=== PATIENT | male | born 1975 | race Caucasian/White ===

== ENCOUNTER 2017-07-03 20:03 | Emergency (ER) | payer MEDICAID, SELFPAY ==
[~2017-07-03] VITALS: Ht 190.5 cm; Wt 102.8 kg
[2017-07-03] MEDS ORDERED: KETOROLAC 30 MG/1 ML ONE (21:54)
[2017-07-03] MEDS ORDERED: METHOCARBAMOL 750 MG TABLET ONE (21:54)
[2017-07-03] MEDS ORDERED: KETOROLAC 30 MG/1 ML IM ONE (22:00)
[2017-07-03] MEDS ORDERED: METHOCARBAMOL 750 MG TABLET PO ONE (22:00)
[2017-07-03 22:38] VITALS: BP 152/105
[2017-07-03] MEDS ORDERED: LISI-424 PO (22:41)
== END 2017-07-03 22:47 | disposition home or self-care (01) ==
LOC: ED 22:42
DX: M54.42 Lumbago with sciatica, left side (principal); I10 Essential (primary) hypertension; M94.0 Chondrocostal junction syndrome [Tietze]; R07.89 Other chest pain
CPT/HCPCS: 71046; 93005; 96372; 99284; J1885

== ENCOUNTER 2017-07-31 18:58 | Emergency (ER) | payer MEDICAID ==
[~2017-07-31] VITALS: Ht 190.5 cm; Wt 104.2 kg
[~2017-07-31 18:58] MED LIST: LISI-424 PO
[2017-07-31] MEDS ORDERED: PROCHLORPERAZINE 5 MG/ML, 2ML ONE (19:23)
[2017-07-31] MEDS ORDERED: DIPHENHYDRAMINE 50 MG/ML, 1ML ONE (19:23)
[2017-07-31] MEDS ORDERED: KETOROLAC 30 MG/1 ML ONE (19:23)
[2017-07-31] MEDS ORDERED: KETOROLAC 30 MG/1 ML IVPush ONE (19:30)
[2017-07-31] MEDS ORDERED: SODIUM CHLORIDE 0.9% 1,000ML IVBOLUS ONE (19:30)
[2017-07-31] MEDS ORDERED: DIPHENHYDRAMINE 50 MG/ML, 1ML IVPush ONE (19:30)
[2017-07-31] MEDS ORDERED: SODIUM CHLORIDE FLUSH 10ML SYR IVF ONE (19:30)
[2017-07-31] MEDS ORDERED: PROCHLORPERAZINE 5 MG/ML, 2ML IVPush ONE (19:30)
[2017-07-31 20:33] VITALS: BP 175/96
== END 2017-07-31 21:15 | disposition home or self-care (01) ==
LOC: ED 20:58
DX: G43.909 Migraine, unspecified, not intractable, without status migrainosus (principal); I10 Essential (primary) hypertension
CPT/HCPCS: 70450; 96374; 96375; 99284; J0780; J1200; J1885; J7030

== ENCOUNTER 2017-12-28 19:58 | Emergency (ER) | payer MEDICAID ==
[~2017-12-28] VITALS: Ht 190.5 cm; Wt 101.2 kg
[2017-12-28 19:59] VITALS: BP 144/96
[2017-12-28] MEDS ORDERED: KETOROLAC 30 MG/1 ML IM ONE (20:30)
[2017-12-28] MEDS ORDERED: CYCLOBENZAPRINE 10 MG TABLET PO ONE (20:30)
[2017-12-28] MEDS ORDERED: CYCLOBENZAPRINE 10 MG TABLET ONE (20:38)
[2017-12-28] MEDS ORDERED: KETOROLAC 30 MG/1 ML ONE (20:38)
== END 2017-12-28 21:04 | disposition home or self-care (01) ==
LOC: ED 20:49
DX: M62.838 Other muscle spasm (principal); I10 Essential (primary) hypertension
CPT/HCPCS: 96372; 99283; J1885

== ENCOUNTER 2018-11-08 03:12 | Emergency (ER) | payer MEDICAID ==
[~2018-11-08] VITALS: Ht 190.5 cm; Wt 115.0 kg
--- NOTE | 2018-11-08 03:30 | NUR ---
GERARDO REMSA AFTER PT TOLD TO CALL FOR HELP. PT HAS BEEN FEELING DEPRESSED FOR PAST 3 MONTHS. STARTED HAVING AUDITORY AND VISUAL HALLUCINATIONS FOR THE PAST 2 WEEKS. DENIES EVERY BEING DIAGNOSED WITH DEPRESSION OR SCHIZOPHRENIA. PT ADMITS TO DRINKING AND USING EITHER COCAINE OR METH TONIGHT. ALSO SAYS HE HAS NOT SLEPT IN 4 DAYS.
[2018-11-08 03:52] LABS: BASOPHILS # (AUTO) 0.16 x10^3/uL (0-0.1); BASOPHILS % (AUTO) 2 % (0-1); EOSINOPHILS # (AUTO) 0.17 x10^3/uL (0-0.4); EOSINOPHILS % (AUTO) 2 % (1-7); LYMPHOCYTES # (AUTO) 3.18 x10^3/uL (1-3.4); LYMPHOCYTES % (AUTO) 39 % (22-44); MD NO; MEAN CORPUSCULAR HEMOGLOBIN 30.2 pg (27.5-34.5); MEAN CORPUSCULAR HGB CONC 33.5 g/dL (33.2-36.2); MEAN CORPUSCULAR VOLUME 90.2 fL (81-97); MEAN PLATELET VOLUME 7.9 fL (7.4-10.4); MONOCYTES # (AUTO) 0.64 x10^3/uL (0.2-0.8); MONOCYTES % (AUTO) 8 % (2-9); NEUTROPHILS # (AUTO) 4.01 x10^3/uL (1.8-6.8); NEUTROPHILS % (AUTO) 49 % (42-75); PLATELET COUNT 283 x10^3/uL (130-400); RED BLOOD COUNT 4.52 x10^6/uL (4.38-5.82)
--- NOTE | 2018-11-08 04:00 | NUR ---
PT RESTING ON IMELDA. VSS. UPDATED ON POC.
[2018-11-08 04:05] LABS: ALANINE AMINOTRANSFERASE 42 U/L (12-78); ALBUMIN 4.4 g/dL (3.4-5.0); ANION GAP 11 mmol/L (5-15); CALCIUM 8.7 mg/dL (8.5-10.1); CHLORIDE 106 mmol/L (98-107); CREATININE 1.22 mg/dL (0.7-1.3)
[2018-11-08 04:07] LABS: ALKALINE PHOSPHATASE 17 U/L (45-117); BILIRUBIN,TOTAL 0.6 mg/dL (0.2-1.0); TOTAL PROTEIN 7.5 g/dL (6.4-8.2)
[2018-11-08 04:08] LABS: ACETAMINOPHEN < 2 mcg/mL (10-30); SALICYLATE LEVEL < 1.7 mg/dL (2.8-20.0)
[2018-11-08] MEDS ORDERED: HYDR-3653 PO (05:12)
[2018-11-08] MEDS ORDERED: GABA300C10 PO (05:12)
--- NOTE | 2018-11-08 05:12 | NUR ---
URINE SAMPLE COLLECTED AND SENT.
[2018-11-08 05:32] LABS: AMPHETAMINE SCREEN, URINE Positive (Negative); BARBITURATE SCREEN, URINE Positive (Negative); BENZODIAZEPINE SCREEN, URINE Negative (Negative); CANNABINOID SCREEN, URINE Negative (Negative); COCAINE SCREEN, URINE Negative (Negative); METHADONE SCREEN, URINE Negative (Negative); OPIATE SCREEN, URINE Positive (Negative)
--- NOTE | 2018-11-08 06:05 | NUR ---
PT RESTING ON GURNEY. BREAKFAST TRAY ORDERED. BREATHALYZER PERFORMED AND READ 0.000
--- NOTE | 2018-11-08 06:19 | NUR ---
Patient with [employer] HPN expansion insurance. [facility] contacted, awaiting assessment at this time.
--- NOTE | 2018-11-08 07:18 | NUR ---
LATE NOTE ENTRY FOR 0645: Received bedside report from NATALIE Freedman. All questions answered. Assuming care of pt. VALDEMAR. Pt is AOX4 sitting on gurney. Pt has unlabored respirations with even chest rise and fall. Pt requesting snacks. Provided pt snacks. Pt stating, "I have sciatica pain." Pt offered ambulation and toileting. Pt up with steady gait and balance to restroom. No obvious defecits observed. No other needs requested at this time.
--- NOTE | 2018-11-08 07:43 | NUR ---
Provided pt breakfast tray. Pt appreciative. NADN. Pt denies SI/HI ideation. Pt denies SA in past.
[2018-11-08] MEDS ORDERED: NICOTINE 21 MG/24 HR PATCH.TD24 ONE (09:45)
[2018-11-08] MEDS ORDERED: NICOTINE 21 MG/24 HR PATCH.TD24 TD ONE (10:00)
--- NOTE | 2018-11-08 10:03 | NUR ---
2ND CALL PLACED TO [facility] FOR EVAL ETA
--- NOTE | 2018-11-08 10:40 | NUR ---
LATE NOTE ENTRY FOR 0900: Pt ambulates in [place] with steady gait and balance. Pt's spouse and children came to visit patient. NADN. No needs expressed. Pt requesting a "work note" when he does d/c from ED. Pt requested soda. Provided soda to pt. Pt requested to change into a hospital gown. Provided pt a hospital gown.
--- NOTE | 2018-11-08 10:42 | NUR ---
Pt resting on gurney watching TV. NADN. No needs expressed. Pt within view for observation from nurse's station. Call light within reach.
--- NOTE | 2018-11-08 10:58 | NUR ---
[facility] ([facility]ARAH) CALLED, NOT [facility] PATIENT
--- NOTE | 2018-11-08 11:42 | NUR ---
[facility] TO EVAL. CONTACTED [facility] SPOKE WITH DERICK Cr @ 4801
--- NOTE | 2018-11-08 11:54 | NUR ---
Provided pt lunch tray. Pt appreciative. VALDEMAR. Pt updated on plan of care and status. Pt states understanding. Pt requesting door shut for noise reduction. Pt's curtain is open and door is shut. Sitter in [address] in direct line of sight for observation. No other needs requested at this time. Call light within reach. Pt watching T.V.
--- NOTE | 2018-11-08 12:40 | NUR ---
Pt resting on gurney watching T.V. NADN. No needs expressed. Pending psych evaluation at this time. Pt aware.
--- NOTE | 2018-11-08 12:52 | NUR ---
Pt's called asking for update on plan of care. Pt gives verbal consent for ED staff to discuss plan of care and status with spouse. Updated spouse on plan of care. All questions answered. Spouse states she will, "call back before I come down to be with him around 4 today." Spouse requesting to talk with pt. Pt ambulates with steady gait and balance to phone. NADN. No needs expressed.
[2018-11-08] MEDS ORDERED: LISINOPRIL 5 MG TABLET ONE (13:27)
[2018-11-08] MEDS ORDERED: LORazepam 1MG TABLET ONE (13:27)
[2018-11-08] MEDS ORDERED: LISINOPRIL 5 MG TABLET PO ONE (13:30)
[2018-11-08] MEDS ORDERED: LORazepam 1MG TABLET PO ONE (13:30)
--- NOTE | 2018-11-08 13:34 | NUR ---
Provided medication per EMAR for pt's hypertension. Provided medicaiton per EMAR for anxiety. Pt appreciative. Provided pt treaded hospital socks per request. Bedrail up for safety measure. Call light within reach. NADN. Pt denies other needs at this time.
--- NOTE | 2018-11-08 14:48 | NUR ---
Provided pt medication per EMAR for hypertension. NADN. Provided pt milk and water per request. Pt's mother at bedside. No other needs requested.
--- NOTE | 2018-11-08 15:18 | NUR ---
Pt resting on gurney watching T.V. NADN. No needs expressed. ED MD aware of BP. Pt's mother at bedside. Call light within reach.
--- NOTE | 2018-11-08 16:05 | NUR ---
Patient is resting comfortably in bed. BP elevated and MD aware, all other vital Signs within normal limits.
--- NOTE | 2018-11-08 17:13 | NUR ---
Pt resting on [facility]. Telepsych monitor in room. NADN. Call light within reach. No needs expressed at this time. Pt provided meal tray for dinner. Pt apprecaitive.
--- NOTE | 2018-11-08 17:23 | NUR ---
[facility] called. Provided report to SOC . All questions answered.
--- NOTE | 2018-11-08 17:26 | NUR ---
PT STILL HYPERTENSIVE 161/118. MD NOTIFIED.
--- NOTE | 2018-11-08 17:58 | NUR ---
Pt's spouse called requesting pt call [phone] upon discharge for a "ride home".
[2018-11-08 18:49] VITALS: BP 166/83
== END 2018-11-08 18:57 | disposition home or self-care (01) ==
LOC: ED 04:55
DX: F32.0 Major depressive disorder, single episode, mild (principal); I10 Essential (primary) hypertension
CPT/HCPCS: 36415; 80053; 80307; 85025; 99284